=== PATIENT | male | born 1980 | race Caucasian/White ===

== ENCOUNTER 2019-01-01 14:39 | Emergency (ER) | payer MEDICAID ==
[~2019-01-01] VITALS: Ht 177.8 cm; Wt 103.4 kg
[2019-01-01 15:20] VITALS: Ht 177.8 cm; Wt 103.4 kg
[2019-01-01 18:57] VITALS: BP 140/74
== END 2019-01-01 18:57 | disposition home or self-care (01) ==
LOC: ED 14:39
DX: J06.9 Acute upper respiratory infection, unspecified (principal)

== ENCOUNTER 2019-01-22 18:40 | Emergency (ER) | payer MEDICAID ==
[~2019-01-22] VITALS: Ht 185.4 cm; Wt 107.0 kg
[2019-01-22 18:43] VITALS: BP 142/102; Ht 185.4 cm; Wt 107.0 kg
== END 2019-01-22 19:53 | disposition home or self-care (01) ==
LOC: ED 18:40
DX: H00.012 Hordeolum externum right lower eyelid (principal)